=== PATIENT | female | born 1980 | race Caucasian/White ===

== ENCOUNTER 2023-05-22 08:41 | Emergency (ER) | payer OTHER ==
[~2023-05-22] VITALS: Ht 167.6 cm; Wt 86.2 kg
[2023-05-22 08:57] VITALS: BP 138/99; PULSE 77; RESP 18; TEMP 97.1; O2SAT 100
[2023-05-22] MEDS ORDERED: NACL 0.9% 1,000 ML IV ONE (09:00)
[2023-05-22] MEDS ORDERED: METOCLOPRAMIDE 10 MG/2 ML INJ VIAL IVP ONE (09:05)
[2023-05-22 09:19] LABS: BASOPHILS % (AUTO) 0.6 % (0.0-2.0); EOSINOPHILS % (AUTO) 0.6 % (0.0-4.0); HEMATOCRIT 43.4 % (36-48); HEMOGLOBIN 14.6 g/dL (12.0-16.0); LYMPHOCYTES # (AUTO) 1.1 K/uL (2.5-16.5); LYMPHOCYTES % (AUTO) 18.9 % (20.5-51.1); MEAN CORPUSCULAR HEMOGLOBIN 30 pg (27-31); MEAN CORPUSCULAR HGB CONC 34 g/dL (33-37); MEAN CORPUSCULAR VOLUME 90.7 fL (80-94); MONOCYTES # (AUTO) 0.4 K/uL (0.8-1.0); MONOCYTES % (AUTO) 7.6 % (1.7-9.3); NEUTROPHILS # (AUTO) 4.2 K/uL (1.8-7.7); NEUTROPHILS % (AUTO) 72.3 % (42.2-75.2); PLATELET COUNT (AUTO) 281 K/uL (140-450); RED BLOOD CELL COUNT(AUTO) 4.78 MIL/uL (4.20-5.40); RED CELL DISTRIBUTION WIDTH 16.3 % (11.6-13.7); WHITE BLOOD COUNT (AUTO) 5.8 K/uL (4.8-10.8)
[2023-05-22 09:37] LABS: ANION GAP 11.4 (8-16); CALCIUM 8.8 mg/dL (8.5-10.1); CARBON DIOXIDE 26.4 mmol/L (21-32); CREATININE 0.8 mg/dL (0.6-1.3); POTASSIUM 3.8 mmol/L (3.5-5.1)
[2023-05-22] MEDS ORDERED: ONDA-188 SL (10:11)
[2023-05-22 10:20] VITALS: BP 138/99; PULSE 77; RESP 18; TEMP 97.1; O2SAT 100
== END 2023-05-22 10:39 | disposition home or self-care (01) ==
LOC: MED 08:41
DX: R04.0 Epistaxis (principal); R42 Dizziness and giddiness; Z88.8 Allergy status to other drugs, medicaments and biological substances; Z79.899 Other long term (current) drug therapy
CPT/HCPCS: 36415; 80048; 81025; 85025; 96361; 96374; 99283; J2765; J7030

== ENCOUNTER 2023-12-14 16:34 | Inpatient (IN) | payer OTHER ==
[~2023-12-14] VITALS: Ht 167.6 cm; Wt 83.0 kg
[~2023-12-14 16:34] MED LIST: ONDA-188 SL
[2023-12-14 16:37] VITALS: BP 167/96; PULSE 72; RESP 18; TEMP 98.7; O2SAT 100
[2023-12-14 17:27] LABS: APPEARANCE,URINE CLOUDY (CLEAR); BILIRUBIN,URINE 1+ (NEGATIVE); BLOOD, URINE 3+ (NEGATIVE); COLOR,URINE RED (YELLOW); LEUKOCYTE ESTERASE ,URINE NEGATIVE (NEGATIVE); NITRITE, URINE NEGATIVE (NEGATIVE); PROTEIN,URINE 2+ (NEGATIVE); UGLUCOSE NEGATIVE (NEGATIVE); UROBILINOGEN,URINE 0.2 EU/dL (0.2 - 1)
[2023-12-14 17:30] LABS: BACTERIA,URINE FEW /HPF (None Seen); RBC,URINE TOO NUMEROUS TO COUN /HPF (0-5); SQUAMOUS EPITHELIAL CELL,UR 0-3 (FEW) /LPF (0-3 (FEW)); WBC,URINE 0-5 /HPF (0-5)
[2023-12-14 17:32] LABS: ICTOTEST NEGATIVE (NEGATIVE)
[2023-12-14] MEDS: ONDANSETRON 4 MG/2 ML VIAL IVP ONE (17:40)
[2023-12-14] MEDS: KETOROLAC 30 MG/ML VIAL IVP ONE (17:42)
[2023-12-14 17:51] LABS: BASOPHILS % (AUTO) 0.5 % (0.0-2.0); EOSINOPHILS % (AUTO) 0.8 % (0.0-4.0); HEMATOCRIT 38.5 % (36-48); HEMOGLOBIN 12.6 g/dL (12.0-16.0); LYMPHOCYTES # (AUTO) 0.9 K/uL (2.5-16.5); LYMPHOCYTES % (AUTO) 15.5 % (20.5-51.1); MEAN CORPUSCULAR HEMOGLOBIN 30 pg (27-31); MEAN CORPUSCULAR HGB CONC 33 g/dL (33-37); MEAN CORPUSCULAR VOLUME 92.2 fL (80-94); MONOCYTES # (AUTO) 0.5 K/uL (0.8-1.0); MONOCYTES % (AUTO) 7.8 % (1.7-9.3); NEUTROPHILS # (AUTO) 4.4 K/uL (1.8-7.7); NEUTROPHILS % (AUTO) 75.4 % (42.2-75.2); PLATELET COUNT (AUTO) 259 K/uL (140-450); RED BLOOD CELL COUNT(AUTO) 4.17 MIL/uL (4.20-5.40); RED CELL DISTRIBUTION WIDTH 14.8 % (11.6-13.7); WHITE BLOOD COUNT (AUTO) 5.9 K/uL (4.8-10.8)
[2023-12-14 18:06] LABS: ANION GAP 11.9 (8-16); CREATININE 0.6 mg/dL (0.6-1.3); POTASSIUM 3.9 mmol/L (3.5-5.1)
[2023-12-14 18:18] LABS: ALBUMIN 3.4 g/dL (3.4-5.0); BILIRUBIN,DIRECT 0.1 mg/dL (0.0-0.3); TOTAL BILIRUBIN 0.2 mg/dL (0.0-1.0); TOTAL PROTEIN, SERUM 6.9 g/dL (6.4-8.2)
[2023-12-14] MEDS ORDERED: SEMA0.258 SUBQ (19:12)
[2023-12-14] MEDS ORDERED: AMLO10TA88 PO (19:12)
[2023-12-14] MEDS ORDERED: OMEP-283 PO (19:12)
[2023-12-14] MEDS ORDERED: [UNRECOGNIZED DRUG - CODE] OP (19:12)
[2023-12-14] MEDS ORDERED: PIPERACILLIN/TAZOBACTAM 4.5 GM VIAL IV ONE (19:44)
[2023-12-14] MEDS: PIPERACILLIN/TAZOBACTAM 4.5 GM in DEXTROSE 5% 100 ML IV ONE (19:55)
[2023-12-15] MEDS ORDERED: HYDROcodone/APAP 5/325 MG 1 TAB TAB PO PRN (04:45)
[2023-12-15 07:44] LABS: BASOPHILS % (AUTO) 0.7 % (0.0-2.0); EOSINOPHILS # (AUTO) 0.1 K/uL (0-0.4); EOSINOPHILS % (AUTO) 1.4 % (0.0-4.0); HEMATOCRIT 35.2 % (36-48); HEMOGLOBIN 11.8 g/dL (12.0-16.0); LYMPHOCYTES % (AUTO) 20.5 % (20.5-51.1); MEAN CORPUSCULAR HEMOGLOBIN 31 pg (27-31); MEAN CORPUSCULAR HGB CONC 34 g/dL (33-37); MONOCYTES # (AUTO) 0.4 K/uL (0.8-1.0); MONOCYTES % (AUTO) 8.5 % (1.7-9.3); NEUTROPHILS # (AUTO) 3.3 K/uL (1.8-7.7); NEUTROPHILS % (AUTO) 68.9 % (42.2-75.2); PLATELET COUNT (AUTO) 244 K/uL (140-450); RED BLOOD CELL COUNT(AUTO) 3.83 MIL/uL (4.20-5.40); RED CELL DISTRIBUTION WIDTH 15.1 % (11.6-13.7); WHITE BLOOD COUNT (AUTO) 4.8 K/uL (4.8-10.8)
[2023-12-15 08:11] LABS: ALBUMIN 2.7 g/dL (3.4-5.0); ANION GAP 14.3 (8-16); CALCIUM 7.4 mg/dL (8.5-10.1); CARBON DIOXIDE 19.9 mmol/L (21-32); CREATININE 0.5 mg/dL (0.6-1.3); MAGNESIUM 1.6 mg/dL (1.8-2.4); POTASSIUM 3.2 mmol/L (3.5-5.1); TOTAL BILIRUBIN 0.3 mg/dL (0.0-1.0); TOTAL PROTEIN, SERUM 5.6 g/dL (6.4-8.2)
[2023-12-15] MEDS: ACETAMINOPHEN 325 MG TAB PO PRN (11:09)
[2023-12-15] MEDS: DEXT 5% / NACL 0.45% 1,000 ML IV SCH (12:43)
[2023-12-15] MEDS: MAG SULF 2000 MG/WATER PREMIX 50 ML IV ONE ×2 (12:53→12:55)
[2023-12-15] MEDS: POTASSIUM CHLORIDE 40 MEQ, LIDOCAINE 1% 25 MG in NACL 0.9% 250 ML IV ONE (14:58)
[2023-12-15 16:00] VITALS: BP 128/92; PULSE 72; RESP 18; TEMP 97.5; O2SAT 98
[2023-12-15 20:00] VITALS: BP 108/70; PULSE 71; RESP 18; TEMP 97.4; O2SAT 98
[2023-12-16 06:50] LABS: BASOPHILS % (AUTO) 0.5 % (0.0-2.0); EOSINOPHILS # (AUTO) 0.1 K/uL (0-0.4); EOSINOPHILS % (AUTO) 1.5 % (0.0-4.0); HEMOGLOBIN 12.5 g/dL (12.0-16.0); LYMPHOCYTES # (AUTO) 1.4 K/uL (2.5-16.5); LYMPHOCYTES % (AUTO) 32.6 % (20.5-51.1); MEAN CORPUSCULAR HEMOGLOBIN 30 pg (27-31); MEAN CORPUSCULAR HGB CONC 33 g/dL (33-37); MEAN CORPUSCULAR VOLUME 92.4 fL (80-94); MONOCYTES # (AUTO) 0.4 K/uL (0.8-1.0); MONOCYTES % (AUTO) 8.9 % (1.7-9.3); NEUTROPHILS # (AUTO) 2.5 K/uL (1.8-7.7); NEUTROPHILS % (AUTO) 56.5 % (42.2-75.2); PLATELET COUNT (AUTO) 244 K/uL (140-450); RED BLOOD CELL COUNT(AUTO) 4.11 MIL/uL (4.20-5.40); RED CELL DISTRIBUTION WIDTH 14.9 % (11.6-13.7); WHITE BLOOD COUNT (AUTO) 4.3 K/uL (4.8-10.8)
[2023-12-16 07:13] LABS: ANION GAP 13.6 (8-16); CALCIUM 8.7 mg/dL (8.5-10.1); CREATININE 0.6 mg/dL (0.6-1.3); POTASSIUM 3.6 mmol/L (3.5-5.1)
[2023-12-16 08:00] VITALS: BP 124/82; PULSE 75; RESP 18; TEMP 98.5; O2SAT 98
[2023-12-16 10:43] VITALS: BP 124/82; PULSE 75; RESP 18; TEMP 98.5
== END 2023-12-16 13:30 | disposition home or self-care (01) | DRG 373 ==
LOC: MED 16:34 → MTU 12-15 04:53
PROVIDERS: ADMIT Student in an Organized Health Care Education/Training Program; ATTEND Student in an Organized Health Care Education/Training Program
DX: K35.890 Other acute appendicitis without perforation or gangrene (principal); I10 Essential (primary) hypertension; Z88.8 Allergy status to other drugs, medicaments and biological substances; Z79.899 Other long term (current) drug therapy
CPT/HCPCS: 36415; 71046; 76856; 80048; 80053; 80076; 81001; 83690; 83735; 85025; J1885; J2001; J2405; J2543; J3475; J3480; J7030; Q0092